=== PATIENT | female | born 1970 | race Caucasian/White ===

== ENCOUNTER 2020-02-21 00:29 | Inpatient (IN) | payer SELFPAY ==
[2020-02-21] MEDS ORDERED: Morphine 4 MG/ML VIAL ONE (00:58)
[2020-02-21 03:04] VITALS: BMI 44.4
[2020-02-21] MEDS ORDERED: Vancomycin HCl 1.5 GM in Sodium Chloride 0.9% 250 ML 300 ML IVPB SCH (04:00)
[2020-02-21] MEDS: Vancomycin 1.5 GRAM/300 ML BAG 1.5 GM in Premix Bag 1 BAG IVPB SCH ×2 (04:34→15:11)
[2020-02-21] MEDS: Morphine 4 MG/ML VIAL SLOW IVP PRN ×2 (04:34→09:08)
[2020-02-21 05:48] LABS: #Eosinphils 0.1 thou/uL (0.0-0.7); #Lymphocytes 1.5 thou/uL (1.20-3.40); #Monocytes 0.8 thou/uL (0.11-0.59); #Neutrophils 5.2 thou/uL (1.40-6.50); %Basophils 0.5 % (0.0-1.0); %Eosinophils 1.8 % (0.0-10.0); %Lymphocytes 19.3 % (21.0-51.0); %Monocytes 9.8 % (0.0-10.0); %Neutrophils 68.7 % (42.0-75.0); Hemoglobin 11.9 g/dL (12.0-16.0); Mean Corpuscular HGB CONC 32.5 g/dL (32.0-36.0); Mean Corpuscular Hemoglobin 30.9 pg (27.0-31.0); Mean Corpuscular Volume 95.1 fL (78.0-98.0); Mean Platelet Volume 8.2 fL (7.4-10.4); Platelet Count 226 thou/uL (130-400); RBC Distribution Width 11.9 % (11.5-14.5); Red Blood Cell (RBC) Count 3.86 mill/uL (4.20-5.40); White Blood Cell (WBC) Count 7.6 thou/uL (4.8-10.8)
[2020-02-21 06:00] LABS: Anion Gap 12 mmol/L (10-20); BUN (Urea Nitrogen) 8 mg/dL (9.8-20.1); Calc. Creatinine Clearance 188 mL/min (70-130); Calcium 8.3 mg/dL (7.8-10.44); Carbon Dioxide 25 mmol/L (22-29); Chloride 104 mmol/L (98-107); Estimated GFR-MDRD Greater than 90; Glucose 85 mg/dL (70-105); Potassium 3.5 mmol/L (3.5-5.1); Sodium 137 mmol/L (136-145)
--- NOTE | 2020-02-21 06:19 | HP ---
REASON FOR ADMISSION: Abdominal wall cellulitis. HISTORY OF PRESENT ILLNESS: This is a 50-year-old female patient who has history of ventral hernia post repair, presenting to the ER for swelling that started approximately 5 days ago around her incisional site that progressed to redness and firmness, also pain associated with initially low-grade fever, then increase in her temperature to approximately 102 degrees with chills and diaphoresis, decreased appetite. The patient used to live in [place] and moved here since then. 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 She is known to have rheumatoid arthritis, was on Humira, last dose was a month ago, and she ran out, supposed to be on methotrexate. Her last dose was a year ago. She saw a physician here who started her on prednisone to control her rheumatoid arthritis pain. She has been on 5 or 10 mg, she is not sure about the dose, was supposed to stop it in couple of days, has been taking it for 2 months. PAST MEDICAL HISTORY: 1. Cellulitis secondary to MRSA. 2. Rheumatoid arthritis. PAST SURGICAL HISTORY: 1. Ventral hernia, diagnosed in 2013. At that time, she underwent surgery and had a mesh placed, and then after complications in 2015, her mesh was removed, and a biological mesh was placed instead. Her cultures were positive for MRSA. Then she had more complications in 2018, during which she had three episodes of cellulitis involving the incision and had to have multiple I's and D's; at that time, she was living in [place], but for the past 2 years, she has not had any cellulitis until recently. 2. Hysterectomy. 3. Colon resection for perforated diverticulitis. 4. Gastric sleeve. 5. Right knee replacement. 6. Carpal tunnel, both hands. 7. Anemia. FAMILY HISTORY: Mother had heart disease. ALLERGIES: NO NOTE OF ANY DRUG ALLERGIES. SOCIAL HISTORY: She does not smoke. Does not drink alcohol. REVIEW OF SYSTEMS: All systems reviewed except the above-mentioned, found to be negative. PHYSICAL EXAMINATION: GENERAL: She is awake, alert, oriented, does not appear in distress. VITAL SIGNS: Her blood pressure is 131/77, pulse 69, temperature is 98.9, saturating 98% on room air. HEENT: Head is nontraumatic and normocephalic. Pupils are equally reactive. Extraocular motors are intact. Nonicteric sclerae. Well injected conjunctivae. Oral mucosa normal. Nasal mucosa normal. NECK: Supple. No adenopathy. No murmur. Thyroid is not palpable. Trachea is midline. No supraclavicular adenopathy. HEART: S1 and S2 regular. Faint systolic murmur heard. No displacement of PMI. LUNGS: Clear to auscultation bilaterally. No wheezes, no rhonchi, no crackles. ABDOMEN: Bowel sounds are positive. Abdomen is tender around the incisional sites with redness and firmness and is warm to touch. It is somewhat circular and the diameter is approximately 10 cm. Other part of her abdomen are soft. EXTREMITIES: She does have 2+ pitting edema in bilateral lower extremities with evidence of chronic venous insufficiency. NEUROLOGIC: Cranial nerves 2 through 12 within normal limits. Normal motor function. Normal sensory function. Normal reflexes. LABORATORY DATA: Blood work shows sodium 137, potassium 3.9, bicarb of 24, BUN of 9, creatinine of 0.82. WBC of 8.1, hemoglobin 13.2, platelets 271. A CT of the abdomen shows infected mesh ventral hernia repair and material with multiple peripherally enhancing collections as described, the largest peripherally enhancing collection having a sinus tract to the skin. Extensive inflammation of the anterior abdominal wall subcutaneous fat. ASSESSMENT AND PLAN: This is a 50-year-old female patient who is presenting with cellulitis of her abdominal wall. CT scan of the abdomen did show enhancing fluid collections, most likely will require surgical drainage. She does have history of abscesses. Cultures were positive for methicillin-resistant Staphylococcus aureus. She required to have multiple incisions and drainages in the past. Surgery was called by the ER physician. They deferred her admission to us. They will see her in consultation, Dr. Fraga, until then she will be on IV vancomycin. We will keep her n.p.o. in preparation for possible intervention, we will provide with IV morphine on as-needed basis for pain control. In regard of her rheumatoid arthritis, she has been on prednisone for 2 months in the setting of an infection. I would rather keep that prednisone because of risk of hypotension and suppression of her adrenal gland, so we will keep her on a low-dose prednisone for now. For deep venous thrombosis prophylaxis, she will be on Lovenox. I did discuss with her the plan of care. She is in agreement. Job ID: [id number]
[2020-02-21] MEDS: Pramipexole Di-HCl 1 MG TAB PO SCH (08:59)
[2020-02-21] MEDS: prednisoLONE 10 MG ODT TAB PO SCH (08:59)
[2020-02-21] MEDS: DULoxetine 60 MG CAP PO SCH (08:59)
[2020-02-21] MEDS: Enoxaparin Sodium 40 MG/0.4 ML SYRINGE SC SCH (10:30)
[2020-02-21 11:09] LABS: INR-International Normal Ratio 1.1; PTT 32.5 SEC (22.9-36.1); Prothrombin Time 14.4 sec (12.0-14.7)
[2020-02-21] MEDS ORDERED: Lidocaine 2% Jelly 5 ML TUBE ONE (11:59)
[2020-02-21] MEDS ORDERED: Fentanyl 100 MCG/2 ML VIAL ONE (11:59)
[2020-02-21] MEDS ORDERED: Midazolam HCl 2 mg/2 ml Vial ONE (11:59)
[2020-02-21] MEDS ORDERED: traMADol HCl 50 MG TAB PO PRN (13:19)
[2020-02-21] MEDS ORDERED: Ondansetron HCl/PF 4 MG/2 ML Vial IVP PRN (13:20)
[2020-02-21] MEDS ORDERED: Ketorolac Tromethamine 30 MG/ML VIAL IVP PRN (13:20)
[2020-02-21] MEDS ORDERED: Promethazine HCl 25 MG/ML VIAL SLOW IVP PRN (13:20)
[2020-02-21] MEDS ORDERED: Promethazine HCl 25 MG/ML VIAL IM PRN (13:20)
[2020-02-21] MEDS ORDERED: Acetaminophen 500 MG TAB PO SCH (13:30)
[2020-02-21] MEDS ORDERED: Ketorolac Tromethamine 30 MG/ML VIAL ONE (13:37)
--- NOTE | 2020-02-21 13:44 | OP ---
DATE OF PROCEDURE: 02/21/2020 PREOPERATIVE DIAGNOSIS: Abdominal wall abscess. POSTOPERATIVE DIAGNOSIS: Abdominal wall abscess. OPERATION PERFORMED: Incision and drainage of large abdominal wall abscess. ANESTHESIA: General endotracheal. ESTIMATED BLOOD LOSS: 20 mL. FLUIDS GIVEN: 1000 mL of crystalloids. COUNTS: Sponge and instrument counts were verified as correct x2. COMPLICATIONS: None apparent at the time of operation. INDICATIONS FOR OPERATION: A 50-year-old woman with previous multiple abdominal operations, presented with redness in the midabdomen, associated with bulging and painful mass. Clinical and radiographic examination were consistent with acute abdominal wall abscess, for which the patient was brought to the operating room for incision and drainage. Findings are consistent with large 8 x 10 x 5 cm abdominal wall abscess, which contained large amount of purulent pus. DESCRIPTION OF PROCEDURE: Informed consent was obtained from the patient, brought to the operating room and placed in supine position. Following general anesthesia, abdomen was sterilely prepped and draped in usual fashion. A vertical incision was made over the dome of the palpable flocculent mass. This was accomplished using 10 scalpel. Incision was carried through subcutaneous tissues and maintained hemostasis using cautery. The abscess cavity was entered using a hemostat. Large amount of purulent pus egressed. Cultures taken. I then used suction to evacuate over 500 mL of old pus from the abscess cavity. Necrotic tissues were bluntly debrided using sponge and Yankauer suction tip. The large abscess cavity was then copiously irrigated with saline and packed using sterile Kerlix gauze. Wound was covered with ABD pad and tape. The patient tolerated this operation without any apparent complication and was returned to recovery room in satisfactory condition. Job ID: [id number]
[2020-02-21] MEDS: traMADol HCl 50 MG TAB PO PRN ×2 (14:14→21:53)
--- NOTE | 2020-02-21 14:40 | CON ---
DATE OF CONSULTATION: 02/21/2020 REASON FOR CONSULTATION: Abdominal wall abscess. HISTORY OF PRESENT ILLNESS: This is a female with a past history of rheumatoid arthritis, on chronic prednisone, and history of MRSA cellulitis. The patient has had multiple abdominal surgeries. The patient had a biological mesh placed in 2018 and has not had any abdominal infections since placement. The patient complains of abdominal redness for 6 days, abdominal swelling, fever, and chills. The patient reports that the redness to her mid abdomen has increased in size. The patient denies any drainage from the area. The patient is having loose stools. The patient denies any nausea or vomiting. REVIEW OF SYSTEMS: A 10-point review of systems is negative unless otherwise indicated in the above HPI. PAST MEDICAL HISTORY: 1. Cellulitis secondary to MRSA. 2. Rheumatoid arthritis. 3. Fibromyalgia. 4. Osteoarthritis. 5. Anemia. PAST SURGICAL HISTORY: Ventral hernia in 2013. In 2018, mesh was removed and a biological mesh was placed. Three episodes of cellulitis involving the incision with multiple incisions and drainages at that time. x1. Laparoscopic gastric bypass, colon resection for perforated diverticulitis, right knee replacement, carpal tunnel surgery in both hands. SOCIAL HISTORY: Denies smoking. Occasional alcohol use. Denies any illicit drug use. ALLERGIES: NO KNOWN DRUG ALLERGIES. CURRENT MEDICATIONS: 1. Prednisone 5 mg 2 tablets p.o. daily. 2. Cymbalta 60 mg p.o. daily. 3. p.o. daily. PHYSICAL EXAMINATION: VITAL SIGNS: Temperature 98.5, pulse 72, respirations 18, SpO2 of 95% on room air, blood pressure 122/78. GENERAL: Middle-aged female, awake, alert, sitting up in bed, in no acute distress. HEENT: Head is atraumatic and normocephalic. Pupils are equal bilateral. Mucous membranes are moist. NECK: Trachea is midline. There is no JVD. RESPIRATORY: Bilateral breath sounds clear. No wheezing, rales, or rhonchi. CARDIAC: Regular rate, regular rhythm. No murmurs. ABDOMEN: Obese, overall nontender, redness, cellulitis to her mid abdomen measuring approximately 10 cm in a circular diameter. Mild blistering, no drainage, site is fluctuant, site is warm around the redness area. Redness marked. EXTREMITIES: Moves all extremities. No focal deficits. Mild edema to the lower extremities. NEUROLOGIC: No focal deficits. GCS 15. LABORATORY DATA: WBC 7.6, RBC 3.86, hemoglobin 11.9, hematocrit 36.7, platelets 226. PT 14.4, INR 1.1, aPTT 32.5. Sodium 135, potassium 3.5, chloride 104, BUN 8, creatinine 0.65, estimated GFR greater than 90, glucose 85, calcium 8.3. DIAGNOSTIC DATA: Abdominal CT, impression; infected mesh ventral hernia repair and material with multiple peripherally enhancing collections with largest peripherally enhancing collection having a sinus tract to the skin. Extensive inflammation of the anterior abdominal wall subcutaneous fat. IMPRESSION: 1. Abdominal wall abscess. 2. History of methicillin-resistant Staphylococcus aureus, gastric bypass surgery, multiple abdominal surgeries, fibromyalgia, rheumatoid arthritis. PLAN: We will keep the patient n.p.o. with maintenance fluids. We will take the patient to the OR for incision and drainage and washout of abdominal abscess wound. Continue antibiotics. We will do a nasal swab to test the patient for recurrent MRSA. The patient was examined by Dr. Fraga. The plan was discussed with the patient who agrees. Job ID: [id number]
[2020-02-21] MEDS ORDERED: Ondansetron PF 4 MG/2 ML Vial ONE (14:50)
[2020-02-21] MEDS ORDERED: Lidocaine 1% PF 5 ML VIAL ONE (14:50)
[2020-02-21] MEDS ORDERED: Dexamethasone 20 MG/5 ML VIAL ONE (14:50)
[2020-02-21] MEDS ORDERED: Succinylcholine Chloride 20 MG/ML 10 ml SYRINGE FS ONE (14:50)
[2020-02-21] MEDS ORDERED: Glycopyrrolate 0.2 MG/ML 5 ML SYRINGE ONE (14:50)
[2020-02-21] MEDS ORDERED: Rocuronium Bromide 10 MG/ML (10ML VIAL) ONE (14:50)
[2020-02-21] MEDS ORDERED: PROPOFOL 200 MG/20 ML VIAL ONE (14:50)
--- NOTE | 2020-02-21 16:17 | PDOC.HOSPP ---
- Subjective Encounter Date: 02/21/20 non-verbal Subjective: Still sedated from surgical procedure. - Objective Vital Signs & Weight: Vital Signs (12 hours) Temp Pulse Resp BP Pulse Ox 02/21/20 14:05 98.1 F 78 18 126/77 94 L 02/21/20 11:14 98.5 F 72 18 122/78 95 02/21/20 07:06 98.3 F 64 18 117/68 98 Weight Admit Weight 258 lb Weight 258 lb 14.4 oz Result Diagrams: 02/21/20 05:10 02/21/20 05:10 Hospitalist ROS - Medication Medications: Active Medications Generic Name Dose Route Start Last Admin Trade Name Freq PRN Reason Stop Dose Admin Duloxetine HCl 60 mg 02/21/20 09:00 02/21/20 08:59 Cymbalta PO 60 mg DAILY YUE Administration Enoxaparin Sodium 40 mg 02/21/20 09:00 02/21/20 10:30 Lovenox SC 40 mg 0900 YUE Administration Vancomycin HCl 1.5 gm/ Device 300 mls @ 200 mls/hr 02/21/20 04:00 02/21/20 15 :11 IVPB 300 mls 0400,1600 YUE Administration Pramipexole Dihydrochloride 0.5 mg 02/21/20 09:00 02/21/20 08:59 Mirapex PO 0.5 mg DAILY YUE Administration Prednisolone 10 mg 02/21/20 09:00 02/21/20 08:59 Orapred Odt PO 10 mg DAILY YUE Administration Tramadol HCl 100 mg 02/21/20 13:19 02/21/20 14:14 Ultram PO 100 mg Q6H PRN Administration Severe Pain (7-10) - Exam General Appearance: NAD General - other findings: Sedated, sleeping soundly. Heart: RRR, no murmur, no gallops, no rubs, normal peripheral pulses Respiratory: CTAB, no wheezes, no rales, no ronchi, normal chest expansion, no tachypnea, normal percussion Gastrointestinal: soft Gastrointestinal - other findings: Surgical dressing Hosp A/P (1) Abdominal wall abscess at site of surgical wound Code(s): T81.49XA - INFECTION FOLLOWING A PROCEDURE, OTHER SURGICAL SITE, INIT Status: Acute (2) Rheumatoid arthritis Code(s): M06.9 - RHEUMATOID ARTHRITIS, UNSPECIFIED Status: Acute - Plan S/P I and D of the abdominal wall abscess. Packed. Continue Vanc. Follow up on cultures.
--- NOTE | 2020-02-21 17:13 | CON ---
DATE OF CONSULTATION: 02/21/2020 REQUESTING PHYSICIAN: Kimberly Mensah MD. HISTORY OF PRESENT ILLNESS: This is a 50-year-old obese woman with a previous history of multiple abdominal operations. The patient was seen in the emergency department with complaint of worsening abdominal wall painful mass, associated with some redness and fever. Her symptoms started approximately 1 week ago, and over the last 48 hours, the bulge has become bigger and the patient is experiencing some chills with anorexia. As a result, she presented for evaluation in the emergency department. Workup included CT scan of the abdomen and pelvis, which revealed abdominal wall fluid collection, suspicious for abscess. The patient recalls having had similar episode in the past, which required incision and drainage for MRSA abscess. She has been on oral prednisone over the last 2 months for rheumatoid arthritis exacerbation. PAST MEDICAL HISTORY: Significant for: 1. Rheumatoid arthritis. 2. Osteoarthritis. 3. Fibromyalgia. 4. Previous MRSA abscess. SURGICAL HISTORY: Numerous, including , colon resection with primary anastomosis in 2011 for perforated diverticulitis. Additionally, she has had a gastric sleeve, a ventral incisional herniorrhaphy with mesh in 2013, laparotomy with excision of infected mesh in 2015, ventral incisional herniorrhaphy in 2018 with Biologic mesh. Additionally, the patient has had multiple incision and drainage of abdominal wall abscesses. Other pertinent surgical history includes hysterectomy, bilateral carpal tunnel release, right total knee arthroplasty. SOCIAL HISTORY: She is . Lives at home with her . She recently moved from [place]. She denies any cigarette smoking, ethanol, or illicit drug abuse. FAMILY HISTORY: Noncontributory for this patient's age. PREHOSPITALIZATION MEDICATIONS: Includes: 1. Cymbalta 60 mg p.o. daily. 2. Pramipexole 0.5 mg p.o. daily for restless legs syndrome. 3. Prednisone 10 mg p.o. daily. ALLERGIES: THE PATIENT DENIES ANY KNOWN DRUG ALLERGIES. REVIEW OF SYSTEMS: Ten-point review of systems essentially unremarkable except as stated in past medical history and chief complaint. PHYSICAL EXAMINATION: GENERAL: This reveals a 50-year-old obese woman who is otherwise coherent and interactive, appears stated age. The patient is alert and oriented x3, appears to be in no acute distress at the time of my evaluation. VITAL SIGNS: Today include blood pressure 122/78, pulse 72, respiratory rate is 18, temperature 98.5 degrees Fahrenheit, and oxygen saturation 95% on room air. HEENT: Reveals normocephalic and atraumatic. HEART: Reveals regular rate and rhythm. No murmurs or gallops auscultated. LUNGS: Clear to auscultation bilaterally. Breathing, regular and nonlabored. ABDOMEN: Soft and obese. She has a 5 x 7 cm flocculent mass in the midabdomen with induration and significant tenderness to touch. She clearly has no peritoneal signs on examination. NEUROLOGIC: Reveals no focal deficits present. LABORATORY FINDINGS: Today include a CBC with 7600 white blood cells, hemoglobin and hematocrit 11.9 and 36.7 respectively, and platelet count is 226,000. Metabolic profile: Sodium 137, potassium 3.5, chloride is 104, bicarb is 25, BUN is 8, creatinine 0.65, and glucose 85. PTT and INR normal at 32.5 seconds and 1.1 respectively. IMPRESSIONS: 1. A 5 x 7 cm abdominal wall abscess. 2. History of steroid-dependent rheumatoid arthritis. PLAN: 1. Incision and drainage of the abscess, which is likely to be secondary to methicillin-resistant Staphylococcus aureus. 2. Agree with current antibiotic regimen. Above findings and plan has been discussed with the patient who indicates understanding information given. I have advised the patient of the risks and benefits of the proposed surgery to include, but not limited to bleeding, infection, injury to bowel or surrounding structures. She is probably at increased risk for enterocutaneous fistula given her multiple previous abdominal operations. The patient indicates understanding the information given. I have answered all her questions. Thank you again, Dr. Mensah, for allowing me the opportunity to participate in the care of this patient. Job ID: [id number]
[2020-02-21] MEDS: Pantoprazole 40 MG VIAL IVP SCH (20:09)
[2020-02-22] MEDS: Vancomycin 1.5 GRAM/300 ML BAG 1.5 GM in Premix Bag 1 BAG IVPB SCH ×2 (04:08→15:41)
[2020-02-22] MEDS: traMADol HCl 50 MG TAB PO PRN ×3 (04:11→15:42)
[2020-02-22] MEDS: Acetaminophen 500 MG TAB PO SCH ×4 (04:12→23:33)
[2020-02-22 05:36] LABS: Hemoglobin 11.9 g/dL (12.0-16.0); Mean Corpuscular Hemoglobin 31.1 pg (27.0-31.0); Mean Corpuscular Volume 94.2 fL (78.0-98.0); Platelet Count 267 thou/uL (130-400); RBC Distribution Width 11.5 % (11.5-14.5); Red Blood Cell (RBC) Count 3.82 mill/uL (4.20-5.40); White Blood Cell (WBC) Count 7.8 thou/uL (4.8-10.8)
[2020-02-22 05:45] LABS: Anion Gap 10 mmol/L (10-20); BUN (Urea Nitrogen) 12 mg/dL (9.8-20.1); Calc. Creatinine Clearance 174 mL/min (70-130); Calcium 8.5 mg/dL (7.8-10.44); Carbon Dioxide 25 mmol/L (22-29); Chloride 104 mmol/L (98-107); Estimated GFR-MDRD 88; Glucose 189 mg/dL (70-105); Magnesium 2.2 mg/dL (1.6-2.6); Phosphorus 2.8 mg/dL (2.3-4.7); Potassium 4.2 mmol/L (3.5-5.1); Sodium 135 mmol/L (136-145)
--- NOTE | 2020-02-22 06:08 | PRG ---
DATE OF SERVICE: 02/21/2020 SUBJECTIVE: The patient was seen this evening during rounds. She was sitting up in bed and awake with no signs of acute distress. She reported she had just gone to the bathroom and has voided twice since she came back from the OR. She is tolerating a diet, and she reports that she is feeling much better. OBJECTIVE: VITAL SIGNS: Temperature 97.4, pulse 60, respirations 16, oxygen saturation 93% on room air, blood pressure 122/73. ASSESSMENT: 1. Postop day 0, status post I and D of abdominal wall abscess. 2. History of methicillin-resistant Staphylococcus aureus cellulitis and rheumatoid arthritis. PLAN: Continue current diet and pain regimen. Continue IV antibiotics. Wound Care to see the patient. Follow up cultures. Job ID: [id number]
[2020-02-22 06:37] LABS: Band 4 % (5-11); Lymphocytes 13 % (21-51); MDiff Complete? YES; Monocytes 6 % (0-10); Neutrophil 77 % (42-75)
[2020-02-22] MEDS: Pramipexole Di-HCl 1 MG TAB PO SCH (08:31)
[2020-02-22] MEDS: prednisoLONE 10 MG ODT TAB PO SCH (08:32)
[2020-02-22] MEDS: Pantoprazole 40 MG VIAL IVP SCH ×2 (08:32→20:32)
[2020-02-22] MEDS: DULoxetine 60 MG CAP PO SCH (08:32)
[2020-02-22] MEDS: Enoxaparin Sodium 40 MG/0.4 ML SYRINGE SC SCH (08:32)
--- NOTE | 2020-02-22 10:38 | PDOC.HOSPP ---
- Subjective Encounter Date: 02/22/20 Subjective: Says she is feeling much better. Her abdominal pain is much improved. Her primary concern now is that she is still without her rheumatoid medications. She believes that she can get her Humira through the company. She believes she can obtain the other medications if she has a prescription. She has been unable to get a prescription from [email or web address]. She has not been referred to rheumatology locally. She lives in [facility]. - Objective Vital Signs & Weight: Vital Signs (12 hours) Temp Pulse Resp BP Pulse Ox 02/22/20 07:50 98.1 F 60 18 135/82 97 02/22/20 00:00 97.4 F L 60 16 122/73 93 L Weight Admit Weight 258 lb Weight 258 lb 14.4 oz I&O: 02/21/20 02/22/20 02/23/20 06:59 06:59 06:59 Intake Total 2255 Output Total 600 Balance 1655 Result Diagrams: 02/22/20 05:19 02/22/20 05:19 Hospitalist ROS - Medication Medications: Active Medications Generic Name Dose Route Start Last Admin Trade Name Freq PRN Reason Stop Dose Admin Acetaminophen 1,000 mg 02/22/20 06:00 02/22/20 04:12 Tylenol PO 1,000 mg Q6HR YUE Administration Duloxetine HCl 60 mg 02/21/20 09:00 02/22/20 08:32 Cymbalta PO 60 mg DAILY YUE Administration Enoxaparin Sodium 40 mg 02/21/20 09:00 02/22/20 08:32 Lovenox SC 40 mg 0900 YUE Administration Vancomycin HCl 1.5 gm/ Device 300 mls @ 200 mls/hr 02/21/20 04:00 02/22/20 04 :08 IVPB 300 mls 0400,1600 YUE Administration Pantoprazole Sodium 40 mg 02/21/20 21:00 02/22/20 08:32 Protonix IVP 40 mg Q12HR YUE Administration Pramipexole Dihydrochloride 0.5 mg 02/21/20 09:00 02/22/20 08:31 Mirapex PO 0.5 mg DAILY YUE Administration Prednisolone 10 mg 02/21/20 09:00 02/22/20 08:32 Orapred Odt PO 10 mg DAILY YUE Administration Tramadol HCl 100 mg 02/21/20 13:19 02/22/20 09:17 Ultram PO 100 mg Q6H PRN Administration Severe Pain (7-10) - Exam General Appearance: NAD, awake alert Heart: RRR, no murmur, no gallops, no rubs, normal peripheral pulses Respiratory: CTAB, no wheezes, no rales, no ronchi, normal chest expansion, no tachypnea, normal percussion Gastrointestinal: soft, non-tender, non-distended, normal bowel sounds, no palpable masses, no hepatomegaly, no splenomegaly, no bruit Gastrointestinal - other findings: Surgical dressing at the mid abdomen. Extremities: no cyanosis, no clubbing, no edema Skin: normal turgor Musculoskeletal: normal tone Psychiatric: normal affect, normal behavior, A&O x 3 Hosp A/P (1) Abdominal wall abscess at site of surgical wound Code(s): T81.49XA - INFECTION FOLLOWING A PROCEDURE, OTHER SURGICAL SITE, INIT Status: Acute (2) Rheumatoid arthritis Code(s): M06.9 - RHEUMATOID ARTHRITIS, UNSPECIFIED Status: Acute - Plan S/P I and D of the abdominal wall abscess. Packed. Continue Vanc. Follow up on cultures. She has a history of MRSA infection. Preliminary results on the culture shows gram-positive cocci in pairs and chains. This is concerning for recurrent MRSA. She is therefore on isolation. We will continue with p.o. prednisone for now. Not sure we will be able to do much over the holiday weekend as far as helping her obtain any medications. May need to work through her county to get some help with that.
[2020-02-22 15:32] LABS: Vancomycin, Trough 11.6 ug/mL
[2020-02-23] MEDS: Vancomycin 1.5 GRAM/300 ML BAG 1.5 GM in Premix Bag 1 BAG IVPB SCH (03:34)
--- NOTE | 2020-02-23 04:06 | PRG ---
DATE OF SERVICE: 02/22/2020 SUBJECTIVE: The patient was seen this evening during rounds. She was sitting up in bed, awake and alert with no signs of acute distress. She reported her pain is well controlled. Her abdominal dressing had just been changed by nursing. She reported that the oozing had decreased significantly. She denies any fevers or chills. OBJECTIVE: VITAL SIGNS: Temperature 97.8, pulse 60, respirations 18, oxygen saturation 96% on room air, and blood pressure 124/80. GENERAL: Well-appearing middle-aged female, sitting up in bed with no signs of acute distress. PULMONARY: Equal chest rise and fall. No signs of acute respiratory distress. ABDOMEN: Soft, nontender, nondistended. Midline abdominal dressing is clean, dry, and intact with no signs of oozing or infection. EXTREMITIES: 2+ pulses in all extremities. Gross motor and sensation intact. No significant swelling noted. NEUROLOGIC: GCS 15. ASSESSMENT: Postoperative day 1, status post I and D of abdominal wall abscess. PLAN: Continue current diet and pain regimen. Follow up wound cultures. Continue current antibiotics in the meantime. Continue ambulating as much as possible. Job ID: [id number]
[2020-02-23] MEDS: Acetaminophen 500 MG TAB PO SCH ×2 (05:39→13:18)
[2020-02-23 06:10] LABS: Mean Corpuscular HGB CONC 32.9 g/dL (32.0-36.0); Mean Corpuscular Volume 94.3 fL (78.0-98.0); Mean Platelet Volume 8.3 fL (7.4-10.4); Platelet Count 272 thou/uL (130-400); RBC Distribution Width 11.6 % (11.5-14.5); Red Blood Cell (RBC) Count 3.56 mill/uL (4.20-5.40); White Blood Cell (WBC) Count 6.3 thou/uL (4.8-10.8)
[2020-02-23 07:22] LABS: Band 1 % (5-11); Lymphocytes 43 % (21-51); MDiff Complete? YES; Monocytes 8 % (0-10); Neutrophil 48 % (42-75)
[2020-02-23 08:16] VITALS: BP 117/75
[2020-02-23] MEDS: DULoxetine 60 MG CAP PO SCH (09:57)
[2020-02-23] MEDS: prednisoLONE 10 MG ODT TAB PO SCH (09:57)
[2020-02-23] MEDS: Pramipexole Di-HCl 1 MG TAB PO SCH (09:57)
[2020-02-23] MEDS: Enoxaparin Sodium 40 MG/0.4 ML SYRINGE SC SCH (09:57)
[2020-02-23] MEDS: Pantoprazole 40 MG VIAL IVP SCH (09:58)
[2020-02-23] MEDS: traMADol HCl 50 MG TAB PO PRN (10:15)
[2020-02-23 11:56] VITALS: TEMP 98.2
== END 2020-02-23 15:30 | disposition home or self-care (01) | DRG 857 ==
LOC: ERS 00:29 → SURG A 01:45
PROVIDERS: ADMIT Internal Medicine; ATTEND Internal Medicine
PROC: 0J980ZZ Drainage of Abdomen Subcutaneous Tissue and Fascia, Open Approach (ICD-10-PCS; principal; 2020-02-21)
DX: T81.41XA Infection following a procedure, superficial incisional surgical site, initial encounter (principal); L02.211 Cutaneous abscess of abdominal wall; M06.9 Rheumatoid arthritis, unspecified; M79.7 Fibromyalgia; M19.90 Unspecified osteoarthritis, unspecified site; D64.9 Anemia, unspecified; B95.62 Methicillin resistant Staphylococcus aureus infection as the cause of diseases classified elsewhere; Z96.651 Presence of right artificial knee joint; Y83.8 Other surgical procedures as the cause of abnormal reaction of the patient, or of later complication, without mention of misadventure at the time of the procedure; Z90.49 Acquired absence of other specified parts of digestive tract; Z98.51 Tubal ligation status; Z98.84 Bariatric surgery status; Z90.710 Acquired absence of both cervix and uterus
CPT/HCPCS: 36415; 80048; 80202; 83735; 84100; 85007; 85025; 85027; 85610; 85730; 86850; 86900; 86901; 87070; 87077; 87081; 87186; 87205; 96374; C9113; J1100; J1650; J1885; J2001; J2250; J2270; J2405; J2704; J3010; J3370; J7510

== ENCOUNTER 2020-07-23 15:13 | Inpatient (IN) | payer OTHER, SELFPAY ==
[2020-07-23] MEDS ORDERED: Iopamidol-370 76% 500 ML 1 ML ONE (15:30)
[2020-07-23 16:00] LABS: Bilirubin Negative (Negative); Blood, Urine 1+ (Negative); Clarity Turbid (Clear); Glucose, Urine (Dipstick) Normal (Negative); Ketone, Urine 10 mg/dL (Negative); Leukocyte 500 Leu/uL (Negative); Nitrite Negative (Negative); Protein, Urine (Dipstick) 20 mg/dL (Neg-Trace); RBC/HPF 0-3 HPF (0-3); Specific Gravity, Urine 1.024 (1.002-1.036); Urobilinogen 6 mg/dL (Less than 2); pH, Urine 5.5 (5.0-9.0)
[2020-07-23 16:01] LABS: Bacteria/HPF 1+ HPF (None Seen)
[2020-07-23 16:10] LABS: #Eosinphils 0.1 thou/uL (0.0-0.7); #Monocytes 0.7 thou/uL (0.11-0.59); #Neutrophils 5.3 thou/uL (1.40-6.50); %Basophils 0.4 % (0.0-1.0); %Eosinophils 0.8 % (0.0-10.0); %Lymphocytes 13.8 % (21.0-51.0); %Monocytes 9.4 % (0.0-10.0); %Neutrophils 75.6 % (42.0-75.0); Hemoglobin 13.6 g/dL (12.0-16.0); Mean Corpuscular HGB CONC 35.4 g/dL (32.0-36.0); Mean Corpuscular Hemoglobin 32.4 pg (27.0-31.0); Mean Corpuscular Volume 91.3 fL (78.0-98.0); Mean Platelet Volume 8.2 fL (7.4-10.4); Platelet Count 261 thou/uL (130-400); RBC Distribution Width 11.3 % (11.5-14.5); Red Blood Cell (RBC) Count 4.21 mill/uL (4.20-5.40)
[2020-07-23 16:39] LABS: ALT (SGPT) 19 U/L (8-55); AST (SGOT) 15 U/L (5-34); Albumin 3.7 g/dL (3.5-5.0); Alkaline Phosphatase 94 U/L (40-110); Anion Gap 16 mmol/L (10-20); BUN (Urea Nitrogen) 13 mg/dL (9.8-20.1); Bilirubin, Total 0.6 mg/dL (0.2-1.2); Calc. Creatinine Clearance 0 mL/min (70-130); Calcium 9.4 mg/dL (7.8-10.44); Carbon Dioxide 25 mmol/L (22-29); Chloride 99 mmol/L (98-107); Estimated GFR-MDRD 72; Globulin 3.9 g/dL (2.4-3.5); Glucose 101 mg/dL (70-105); Lipase 28 U/L (8-78); Potassium 3.8 mmol/L (3.5-5.1); Protein, Total 7.6 g/dL (6.0-8.3); Sodium 136 mmol/L (136-145)
[2020-07-23] MEDS ORDERED: Piperacillin/Tazobactam 4.5 GM VIAL ONE (17:08)
--- NOTE | 2020-07-23 17:44 | CT ---
CT ABDOMEN AND PELVIS WITH IV CONTRAST: 07/23/20 HISTORY: Fever. Cellulitis of abdominal wall. COMPARISON: 02/20/20 FINDINGS: Lung bases remain clear. The previously seen fluid collection in the anterior abdominal wall along the linea alba is no longer visualized and may be related to interval treatment. The subcutaneous edema and stranding in the arnulfo pose layer of the anterior abdominal wall has improved but does persists. There is now a fluid collec tion with thickened enhancing wall present within the anterior aspect of the pelvis below the abdomin al wall and beneath what is thought to be mesh material. The collection in this region measures 5.8 c m craniocaudal x 4.8 cm AP x 3.8 cm in transverse dimensions. There is also prominent adjacent inflam matory stranding. The collection within the anterior aspect of the abdomen also extends superiorly al emmanuel the mesh material. There is mild enhancement of tissue extending inferior to the collection as we ll along the anterior abdominal wall and in the region of the mesh likely related to phlegmon and inf lammatory change. Postoperative changes related to bariatric surgery with small hiatal hernia. Surgical clips are seen in the anterior epigastric region. The liver, spleen, pancreas, bilateral adrenal glands, kidneys, abdominal aorta, and urinary bladder demonstrate a normal CT appearance. There is evidence of hysterectomy. Postoperative changes in the region of the sigmoid colon are noted. There is colonic diverticulosis p resent. Loops of small bowel are normal in caliber. No other interval change. IMPRESSION: 1. Findings likely related to infection of mesh material along the anterior abdominal wall. Prev iously seen collection predominantly within the anterior abdominal wall above the level of the mesh m aterial is no longer seen which may be related to interval treatment. However, there is now a new col lection seen posterior to the region of the mesh material worrisome for new abscess collection. There are inflammatory changes and phlegmon seen adjacent to the mesh material. 2. Subcutaneous edema and stranding in the infraumbilical adipose layer which could be related t o cellulitis. This has improved from prior exam but does persist. 3. Evidence of prior gastric surgery with persistent small hiatal hernia. 4. Colonic diverticulosis with evidence of postoperative changes of the sigmoid colon. POS: [facility]
[2020-07-23] MEDS ORDERED: Acetaminophen 325 MG TAB PO PRN (19:56)
[2020-07-23] MEDS ORDERED: Ondansetron PF 4 MG/2 ML Vial IVP PRN (19:56)
[2020-07-23] MEDS ORDERED: Vancomycin HCl 1 GM in Sodium Chloride 0.9% 250 ML 300 ML IVPB SCH (20:00)
--- NOTE | 2020-07-23 20:18 | PDOC.CONS ---
- Consultation Encounter Date: 07/23/20 Encounter Time: 20:11 Reason for consultation-abdominal wall abscess Chief complaint-I have another abscess History of present illness-the patient is a 50-year-old female who presents to the emergency room with a 1 week history of increasing swelling and pain within the lower central abdomen. 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 Most recently, she was here in January for a similar episode, yet in a different location. She underwent incision and drainage at that time. Over the years, she states that she has had abscesses in other locations to include prior drain sites and other nonoperative areas on her abdomen. Several days ago, she had a T-max of 102. She has been avoiding coming to seek medical attention secondary to a lack of insurance. Her pain is well localized. It is in the lower abdomen. Can get up to 8 out of 10. Worse with movement. Better when she remains still. Constant and sharp. Patient has a history of prior prednisone use. She has not had any steroids or immune modulating medicine since before January. Past medical history-rheumatoid arthritis, fibromyalgia, history of MRSA Past surgical history-gastric sleeve, ventral hernia repair, removal of infected mesh, hernia repair with biologic mesh, sigmoidectomy for prior history of diverticular abscess, hysterectomy, right knee replacement, carpal tunnel, panniculectomy Family history-mother had a myocardial infarction, father recently passed of colon cancer Medication-Cymbalta Allergies-none Social history-denies smoking, occasional alcohol use Review of systems-positive for joint pain, back pain, otherwise, 10 system, two- point per system negative other than HPI 145/72, 76, 98.8 General-[no acute distress, well-nourished, overweight] Head-[normocephalic, atraumatic] HEENT- [EOMI], [PERRLA] Neck-[trachea midline, supple] Lungs-[grossly clear to auscultation], [normal air movement] Heart-[regular regular], [no murmurs] Abdomen-[soft], [nondistended], in the lower abdomen, within the midline-there is an area of erythema that is warm and protuberant. This is tender to palpation, [normal active bowel sounds] Musculosketal-[full range of motion], [no gross deformity] Psychiatric-[good insight, good judgment] Skin-[good turgor, no jaundice] Neuro- [GCS 15], [CN II-XII intact] Lab-White blood cell count-7.6 CT scan abdomen and pelvis-independently viewed the images-I read the radiologist interpretation-the patient has, what appears to be a multi loculated abscess within the lower abdomen. It is difficult to ascertain whether this is above or below the fascia. On some images, it appears to be either within the midline or above it. Regardless, the original abscess from last January has resolved. Assessment- #1-abdominal wall abscess-the patient has a very good memory for her hernia repair in 2018. She was told that she had biologic mesh placed. It sounds like she had an onlay and an underlay. On the CT scan, you can clearly identify what appears to be mesh under the rectus. The question is going to be whether this is synthetic or biologic. We discussed that it is possible this could just be a straightforward I&D, but there is always the potential that she has synthetic mesh that has an abscess communicating with it. In that circumstance, we would have to explant the mesh, and given her past surgical history, this could be cumbersome. We discussed the possibility of enterotomy, colotomy or damage to the bladder. If it is a biologic, it seems to be fairly substantial given that it was placed almost 2 years ago. Fortunately, if it is a biologic, we can treat through it with wound care after the abscess has been drained. #2-rheumatoid arthritis-patient has been off of steroids for quite some time. I do not think she needs stress dose steroids. Plan-n.p.o. after midnight, OR has been contacted and the patient will be brought to the operating room tomorrow morning for incision and drainage with other procedures (explant of mesh) as indicated. Given her history of MRSA, she should be on a broad-spectrum antibiotic as well as vancomycin. Hopefully this is just a matter of an incision and drainage, but given her history and its appearance on the CT scan, this would be very optimistic. Anticipate her to be here for more than 2 midnights.
[2020-07-23 21:00] VITALS: BMI 44.6
[2020-07-23] MEDS: Cefepime 2 GM in Sodium Chloride 0.9% 100 ML IVPB SCH (21:48)
[2020-07-23] MEDS: Sodium Chloride 0.9% 1,000 ML IV SCH (21:48)
--- NOTE | 2020-07-23 21:50 | PDOC.EVN ---
Event Note - Event Note Event Note: [id number] HP
[2020-07-23] MEDS: metroNIDAZOLE 500 MG in Premix Bag 1 BAG IVPB SCH (22:31)
--- NOTE | 2020-07-24 01:07 | HP ---
CHIEF COMPLAINT: Cellulitis/skin infection. HISTORY OF PRESENT ILLNESS: Ms. Hamilton is a 50-year-old female with past medical history of rheumatoid arthritis, fibromyalgia, MRSA infection, among others, presents to the emergency room for evaluation of a skin infection/cellulitis of her abdominal wall that has been developing over the last several days. The patient also has fever. She had a similar episode in the past spring, for which she was admitted and needed drainage. 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 She is not on any current immunosuppressive for her rheumatoid arthritis. Workup in the emergency room, the patient was found to have cellulitis of abdominal wall. Lab work including imaging studies showed abscess. Surgeon is being consulted by ED. The patient is on IV antibiotics. The patient is being admitted to the hospital for further management. PAST MEDICAL HISTORY: As mentioned above in the history of present illness. PAST SURGICAL HISTORY: 1. Gastric sleeve. 2. Colon resection. 3. Hernia repair. 4. Right knee surgery. 5. section. 6. Tubal ligation. PAST PSYCHIATRIC HISTORY: Anxiety, depression. SOCIAL HISTORY: The patient drinks socially. Denies drug use. No smoking history. FAMILY HISTORY: Reviewed, noncontributory. ALLERGIES: NO KNOWN ALLERGIES. HOME MEDICATIONS: Please see home medication reconciliation form for updated medications. REVIEW OF SYSTEMS: Review of 14 systems negative except what is mentioned in history of present illness. PHYSICAL EXAMINATION: GENERAL: The patient is awake, alert, in moderate distress. VITAL SIGNS: Blood pressure , pulse is 89, respiratory rate is 16, temperature is 98.2, oxygen saturation 100% on room air. HEAD AND NECK: Normocephalic, atraumatic. NECK: Supple. No JVD. CHEST: Fair bilateral air entry. HEART: S1, S2. Regular. ABDOMEN: Mild tenderness, left lower quadrant. SKIN: There is redness/cellulitis of the anterior abdominal wall. NEUROLOGIC: Awake, alert, and oriented. No focal findings. PSYCH: Unable to assess. EXTREMITIES: No clubbing or cyanosis. LABORATORY DATA: CT showed abscess on the anterior side of the mesh. WBC 7.0, hemoglobin 13.6, platelets 8.2. Sodium 136, potassium 3.8, BUN is 30, creatinine 0.8. ASSESSMENT: 1. Cellulitis of abdominal fold. 2. Abdominal wall abscess. 3. Rheumatoid arthritis. 4. History of MRSA infection. PLAN: 1. Admit. 2. Septic workup done in the ED. 3. IV antibiotics. 4. Surgeon was consulted by ED for evaluation and further management. The patient will require drainage. 5. Reconcile home medications. 6. DVT prophylaxis as appropriate. 7. Expected length of stay, 2 midnights or more. Job ID: [id number]
[2020-07-24] MEDS: metroNIDAZOLE 500 MG in Premix Bag 1 BAG IVPB SCH ×2 (05:06→18:26)
[2020-07-24] MEDS: Vancomycin HCl 1.75 GM in Sodium Chloride 0.9% 500 ML IVPB SCH ×2 (06:13→18:36)
[2020-07-24 06:17] LABS: #Eosinphils 0.1 thou/uL (0.0-0.7); #Lymphocytes 1.2 thou/uL (1.20-3.40); #Monocytes 0.6 thou/uL (0.11-0.59); #Neutrophils 4.3 thou/uL (1.40-6.50); %Basophils 0.4 % (0.0-1.0); %Eosinophils 1.4 % (0.0-10.0); %Lymphocytes 19.5 % (21.0-51.0); %Monocytes 9.9 % (0.0-10.0); %Neutrophils 68.8 % (42.0-75.0); Hemoglobin 12.4 g/dL (12.0-16.0); Mean Corpuscular HGB CONC 32.5 g/dL (32.0-36.0); Mean Corpuscular Hemoglobin 30.6 pg (27.0-31.0); Mean Platelet Volume 8.4 fL (7.4-10.4); Platelet Count 254 thou/uL (130-400); RBC Distribution Width 11.6 % (11.5-14.5); Red Blood Cell (RBC) Count 4.05 mill/uL (4.20-5.40); White Blood Cell (WBC) Count 6.3 thou/uL (4.8-10.8)
[2020-07-24 06:38] LABS: Anion Gap 14 mmol/L (10-20); BUN (Urea Nitrogen) 8 mg/dL (9.8-20.1); Calc. Creatinine Clearance 183 mL/min (70-130); Calcium 8.7 mg/dL (7.8-10.44); Carbon Dioxide 20 mmol/L (22-29); Chloride 108 mmol/L (98-107); Estimated GFR-MDRD Greater than 90; Glucose 99 mg/dL (70-105); Potassium 3.7 mmol/L (3.5-5.1); Sodium 138 mmol/L (136-145)
[2020-07-24] MEDS ORDERED: FLU VACC QS2020-21(6MOS UP)/PF 60 MCG/0.5 ML SYRINGE IM ONE (09:00)
[2020-07-24] MEDS ORDERED: PROPOFOL 200 MG/20 ML VIAL ONE (09:22)
[2020-07-24] MEDS ORDERED: Rocuronium Bromide 10 MG/ML (10ML VIAL) ONE (09:22)
[2020-07-24] MEDS ORDERED: PHENYLEPHRINE-NS 100 MCG/ML 10 ML SYRINGE ONE (09:22)
[2020-07-24] MEDS ORDERED: Glycopyrrolate 0.2 MG/ML 5 ML SYRINGE ONE (09:22)
[2020-07-24] MEDS ORDERED: Ondansetron PF 4 MG/2 ML Vial ONE (09:22)
[2020-07-24] MEDS ORDERED: Lidocaine 1% PF 5 ML VIAL ONE (09:22)
[2020-07-24] MEDS ORDERED: Dexamethasone 20 MG/5 ML VIAL ONE (09:22)
[2020-07-24] MEDS: Cefepime 2 GM in Sodium Chloride 0.9% 100 ML IVPB SCH (10:05)
[2020-07-24] MEDS: Sodium Chloride 0.9% 1,000 ML IV SCH (10:27)
--- NOTE | 2020-07-24 11:18 | PDOC.BPN ---
- Brief Progress Note Encounter Date: 07/24/20 Encounter Time: 11:17 Patient states that her pain is somewhat improved this morning. Still located in her lower abdomen. Otherwise, no new changes. No fevers or chills overnight Patient had a low-grade temperature Abdomen-soft with the exception of the lower midline area. Erythema has somewhat improved, but the area is rubber heel and sole press tender. White blood cell count normal. We went over the operation again this morning. We will start with an incision and drainage in hopes that this is all suprafascial. Otherwise, she may need mesh explantation. Patient voices understanding
[2020-07-24 12:03] LABS: SARS-CoV-2 MS2 Positive; SARS-CoV-2 N Gene Negative; SARS-CoV-2 S Gene Negative; SARS-CoV-2 by NAA Not Detected (NotDetected); SARS-CoV-2 orf1ab Negative
[2020-07-24] MEDS ORDERED: metroNIDAZOLE 500 MG/100 ML BAG ONE (14:20)
[2020-07-24] MEDS ORDERED: Fentanyl 100 MCG/2 ML VIAL ONE (15:38)
[2020-07-24] MEDS ORDERED: Midazolam HCl 2 mg/2 ml Vial ONE (15:38)
[2020-07-24] MEDS ORDERED: Lidocaine 2% Jelly 5 ML TUBE ONE (15:38)
[2020-07-24] MEDS ORDERED: Neomycin-Polymyxin 1 ML AMP ONE (16:54)
[2020-07-24] MEDS ORDERED: Ondansetron HCl/PF 4 MG/2 ML Vial IVP PRN (17:47)
[2020-07-24] MEDS ORDERED: Promethazine HCl 25 MG/ML VIAL SLOW IVP PRN (17:47)
[2020-07-24] MEDS ORDERED: Promethazine HCl 25 MG/ML VIAL IM PRN (17:47)
--- NOTE | 2020-07-24 18:45 | PDOC.OP ---
Operative Note - Operative Note Operative Note: Date of surgery-24 July 2020 Preop rirfuwyqa-ezqli-mrptepgon abscess Postop ntevyabxu-bwrxs-upaveuehh abscess Procedure performed-drainage of intra-abdominal abscess with excision of mesh Anesthesia- [General] EBL- [minimal] Specimen-for culture Complications- [none] Sponge and needle count were correct x2 Indication for procedure-The patient is a 50-year-old female who has had a history of multiple MRSA infections on her abdominal wall. Most recently, she had an abscess drained in January. She presented this weekend with pain erythema and swelling of the lower abdomen. CT scan demonstrated a abscess about or under the abdominal wall. She was taken to the operating room for drainage and potential mesh excision Conduct of the operation-After written preoperative informed consent, the patient was brought to the operating room, placed in the supine position and underwent general anesthesia. The abdomen was prepared draped in sterile fashion. A timeout was performed. An incision was made over the area of fullness in the lower abdomen. Dissection was carried down to the fascia and this was carefully divided. Once through, the abscess cavity was entered which consisted of purulent material that had no odor. Cultures were obtained. There was evidence of synthetic mesh. This was excised through the accessible portion of the incision. A drain was left. The fascia was closed with 2-0 PDS suture. The incision was loosely stapled with sheila in between. Patient was extubated and taken the postanesthesia care area in good condition having tolerated the procedure well.
--- NOTE | 2020-07-24 18:51 | PDOC.HOSPP ---
- Subjective Encounter Date: 07/24/20 Encounter Time: 18:52 Subjective: The patient is postop from drainage of abscess. She has no abdominal pain. She is having loose stools since last Sunday . Denies eating outside at a restaurant recently . She was taking cipro and flagyl prior to admission She denies nausea or vomiting. - Objective Vital Signs & Weight: Vital Signs (12 hours) Temp Pulse Resp BP Pulse Ox 07/24/20 11:48 98.9 F 69 16 109/73 95 07/24/20 08:24 98.3 F 69 18 122/76 95 Weight Weight 260 lb I&O: 07/23/20 07/24/20 07/25/20 06:59 06:59 06:59 Intake Total 2390 Balance 2390 Result Diagrams: 07/24/20 05:24 07/24/20 05:24 Hospitalist ROS - Review of Systems Constitutional: denies: fever, chills - Medication Medications: Active Medications Generic Name Dose Route Start Last Admin Trade Name Freq PRN Reason Stop Dose Admin Sodium Chloride 1,000 mls @ 75 mls/hr 07/23/20 20:00 07/24/20 10:27 Normal Saline 0.9% IV Not Given .[id number] YUE Cefepime HCl 2 gm/ Sodium 100 mls @ 200 mls/hr 07/23/20 21:00 07/24/20 10:05 Chloride IVPB 100 mls Q12HR YUE Administration Metronidazole 500 mg/ Device 100 mls @ 100 mls/hr 07/23/20 22:00 07/24/20 18:26 IVPB Not Given Q8HR YUE Vancomycin HCl 1.75 gm/ Sodium 500 mls @ 250 mls/hr 07/24/20 06:00 07/24/20 18:36 Chloride IVPB 500 mls 0600,1800 YUE Administration - Exam General Appearance: NAD, awake alert Eye: PERRL, anicteric sclera ENT: normocephalic atraumatic, no oropharyngeal lesions Neck: no JVD Heart: RRR, no murmur, no gallops, no rubs Respiratory: CTAB, no wheezes, no rales, no ronchi Gastrointestinal: soft Gastrointestinal - other findings: surgical gauze in midline. No significant tenderness Extremities: no cyanosis, no clubbing, no edema Skin: normal turgor, no lesions, no rashes Neurological: cranial nerve grossly intact, normal sensation to touch, no focal deficits, no new deficit Hosp A/P - Plan CT abdomen: new collection posterior to region of mesh with inflammatory changes and phlegmon. Subcutaneous edema. Diverticulosis This is a 50 year old female who presented to the ER with abdominal pain, found to have an abscess Abdominal abscess - s/p drainage today - continue IV vancomycin, cefepime and flagyl - pain meds prn - will resume diet Diarrhea - check stool cultures, C diff Anxiety - continue buspirone Depression - continue cymbalta
[2020-07-24] MEDS ORDERED: HYDROcodone/Acetaminophen 5/325 mg Tablet PO PRN ×2 (19:22)
[2020-07-25 05:45] LABS: Vancomycin, Trough 8.8 ug/mL
[2020-07-25] MEDS ORDERED: Vancomycin 1.5 GRAM/300 ML BAG 1.5 GM in Premix Bag 1 BAG IVPB SCH (06:00)
[2020-07-25] MEDS: Vancomycin HCl 1.75 GM in Sodium Chloride 0.9% 500 ML IVPB SCH (08:44)
[2020-07-25 11:35] VITALS: BP 123/77; TEMP 97.5
--- NOTE | 2020-07-25 15:56 | DIS ---
DATE OF ADMISSION: 07/23/2020 DATE OF DISCHARGE: 07/25/2020 DISCHARGE DIAGNOSIS: 1. Intraabdominal abscess with cellulitis, status post drainage with excision of mesh. 2. Diarrhea 3. Dysuria CONSULTATIONS: Dr. Michael Pond with General Surgery. PROCEDURES: Drainage of intraabdominal abscess with excision of mesh. BRIEF HISTORY OF PRESENT ILLNESS: This is a 50-year-old female with a past medical history of rheumatoid arthritis, fibromyalgia, MRSA infection, presented to the emergency room with cellulitis in her abdominal wall over the past several days. She had a similar episode last spring and needed drainage. She reports history of MRSA. She reported having fevers at home, but was afebrile here. She underwent a CT scan of her abdomen and pelvis in the emergency room, which showed infection of the mesh material along the anterior abdominal wall with a new collection, posterior to the region of mesh, worrisome for a new abscess. There are inflammatory changes and phlegmon. There is subcutaneous edema. She was started on broad-spectrum antibiotics, admitted to the hospital. HOSPITAL COURSE: Abdominal wall cellulitis secondary to intraabdominal abscess: She was initially started on IV vancomycin, cefepime, and Flagyl. The patient underwent incision and drainage with excision of mesh on 07/23 with drain placement. Wound cultures are growing gram-positive cocci in clusters. The patient's previous culture grew MRSA so she will be discharged on bactrim for 7 days. She will follow up with Dr. Pond tomorrow at 10 o'clock in the morning for evaluation of removal of her drain. The patient is requiring [place] for pain and this was prescribed by Dr. Pond on discharge. She should follow up with her PCP in a week. Diarrhea: The patient reported diarrhea on and off since last week. She did have a rapid parasite screen, which was negative. Campylobacter, Shigella, E coli, and C difficile were normal. This might be secondary to her antibiotics. She did not want any antidiarrheals on discharge, instead to take fiber supplements p.r.n. Dysuria: The patient reported occasional dysuria. UA showed turbid urine, 10 ketones, negative nitrites, and 11 to 20 white blood cells. Urine culture was attempted to be obtained, but the patient was unable to urinate again. She will be discharged on Bactrim. Consider repeat UA and urine culture if her symptoms persist. DISCHARGE PHYSICAL EXAMINATION: VITAL SIGNS: Temperature 97.5, heart rate 60, respiratory rate 16, O2 saturation 97% on room air, blood pressure 123/77. GENERAL: The patient is alert, awake, and oriented x3. CVS: Regular rate and rhythm with no murmurs, rubs, or gallops. LUNGS: Clear to auscultation bilaterally. ABDOMEN: Positive bowel sounds. She does have an open wound discovered in gauze from her surgery. There is a drain in place. Abdomen is tender on the surgical site slightly. EXTREMITIES: No edema. LABORATORY DATA: CBC, 07/24: Normal. BMP, 07/24: Unremarkable except for chloride of 108. LFTs, 07/23: Normal. IMAGING: CT abdomen and pelvis, 07/23: Infection of the mesh which was along the anterior abdominal wall. Subcutaneous edema and stranding in the infraumbilical adipose layer. Colonic diverticulosis. New collection seen posterior to the region of the mesh material, worrisome for a new abscess. There are inflammatory changes and phlegmon seen adjacent to the mesh material. DISCHARGE CONDITION: Stable. ACTIVITY: As tolerated. DIET: Regular diet. DISCHARGE MEDICATIONS: 1. Bactrim Double Strength 1 tablet p.o. b.i.d. 2. [place] 5 mg/325 mg one tablet q.4 hours p.r.n., prescribed by Dr. Pond. 3. Pramipexole 1.5 mg one tablet p.o. daily. 4. Lexapro 10 mg tablet p.o. daily. 5. Duloxetine 60 mg capsule p.o. daily. 6. Buspirone 10 mg tablet p.o. b.i.d. DISCHARGE INSTRUCTIONS: The patient needs to follow up with Dr. Pond on Sunday. Keep the drain in until then. Return to the hospital if any fever, purulent discharge, severe abdominal pain. Job ID: [id number] [facility]
--- NOTE | 2020-07-28 05:12 | PQF ---
Dear : Karrie Ball Date 07/28 Please exercise your independent, professional judgment in responding to the clarification form. Clinical indicators are provided on the bottom of this form for your review Can you please further clarify if Abdominal wall abscess is a complication of recent surgery or not? Please check appropriate box(es): [ X ] Abdominal wall abscess due to Infected mesh from recent surgery [ ] Abdominal wall abscess is not Infected mesh from recent surgery [ ] Other diagnosis please specify [ ] Unable to determine Physician Signature: Date/Time: For continuity of documentation, please document condition throughout progress notes and discharge summary. Thank You. To be completed by CDI/Coding staff for physician review: Present Clinical Indicators - Signs / Symptoms / Labs Results and Location in Medical Record [ x ] Abdominal wall abscess Consult Dr. Pond 07/23 pg.1 [ x ] 1 week hx of increasing swelling and pain within lower central abdomen Consult Dr. Pond 07/23 pg.1 [ x ] She has hx of numerous MRSA in the past Consult Dr. Pond 07/23 pg.1 [ x ] CT showed abscess on the anterior side of the mesh H ad P pg.2 [ x ] Infection of the mesh material along the anterior abdominal wall with a new collection DS pg.1 [ x ] Bacterial culture- Final: MRSA Microgiology [ x ] WBC: 07/23=7.0 07/24=6.3 Laboratory 07/23 Present Risk Factors Results and Location in Medical Record [ x ] Surgical hx of gastric sleeve Consult Dr. Pond 07/23 pg.1 [ x ] Surgical hx of ventral hernia repair Consult Dr. Pond 07/23 pg.1 [ x ] Surgical hx of removal of infected mesh Consult Dr. Pond 07/23 pg.1 [ x ] Abdominal wall Cellulitis H and P pg.1 [ x ] Obesity Anesthesia 07/24 Present Treatments Results and Location in Medical Record [ x ] IV fluids MAR [ x ] Drainage of intraabdominal abscess OP report pg.1 [ x ] Excision of mesh OP report pg.1 [ x ] Abdomen/Pelvis CT 07/23 [ x ] Vancomycin 1.75gm IV MAR [ x ] Zosyn 4.5gm IV MAR [ x ] Cefepime 2gm IV MAR [ x ] Bacterial culture Microbiology 07/24 [facility] Signature: Yash Chakraborty Phone #: [phone] Date: 07/28/20 This is a permanent part of the Medical Record [facility]
== END 2020-07-25 15:05 | disposition home or self-care (01) | DRG 908 ==
LOC: ERS 15:13 → SURG B 18:49
PROVIDERS: ADMIT Internal Medicine; ATTEND Internal Medicine
PROC: 0W9F00Z Drainage of Abdominal Wall with Drainage Device, Open Approach (ICD-10-PCS; principal; 2020-07-24)
PROC: 0WPF0JZ Removal of Synthetic Substitute from Abdominal Wall, Open Approach (ICD-10-PCS; 2020-07-24)
PROC: 3E02340 Introduction of Influenza Vaccine into Muscle, Percutaneous Approach (ICD-10-PCS; 2020-07-25)
DX: T85.79XA Infection and inflammatory reaction due to other internal prosthetic devices, implants and grafts, initial encounter (principal); L03.311 Cellulitis of abdominal wall; Z68.41 Body mass index [BMI] 40.0-44.9, adult; L02.211 Cutaneous abscess of abdominal wall; Z20.828 Contact with and (suspected) exposure to other viral communicable diseases; M79.7 Fibromyalgia; E66.01 Morbid (severe) obesity due to excess calories; F41.9 Anxiety disorder, unspecified; F32.9 Major depressive disorder, single episode, unspecified; M19.90 Unspecified osteoarthritis, unspecified site; Y83.8 Other surgical procedures as the cause of abnormal reaction of the patient, or of later complication, without mention of misadventure at the time of the procedure; R19.7 Diarrhea, unspecified; Z93.1 Gastrostomy status; Z90.49 Acquired absence of other specified parts of digestive tract; Z23 Encounter for immunization; Z98.51 Tubal ligation status; Z90.710 Acquired absence of both cervix and uterus; Z79.899 Other long term (current) drug therapy
CPT/HCPCS: 36415; 74177; 80048; 80053; 80202; 81003; 81015; 83605; 83630; 83690; 85025; 87040; 87045; 87046; 87070; 87077; 87081; 87186; 87205; 87324; 87328; 87329; 87427; 87449; 87635; 90471; 90662; 96365; 96367; G0008; J0692; J1100; J2250; J2405; J2543; J2704; J3010; J3370; J3490; J7030; Q9967; U0003

== ENCOUNTER 2020-08-20 16:56 | Observation (INO) | payer SELFPAY ==
[2020-08-20 17:56] LABS: #Basophils 0.1 thou/uL (0.0-0.2); #Eosinphils 0.2 thou/uL (0.0-0.7); #Lymphocytes 2.3 thou/uL (1.20-3.40); #Monocytes 0.4 thou/uL (0.11-0.59); #Neutrophils 3.5 thou/uL (1.40-6.50); %Basophils 1.1 % (0.0-1.0); %Eosinophils 3.7 % (0.0-10.0); %Lymphocytes 35.9 % (21.0-51.0); %Monocytes 6.1 % (0.0-10.0); %Neutrophils 53.2 % (42.0-75.0); Hemoglobin 14.4 g/dL (12.0-16.0); Mean Corpuscular HGB CONC 32.9 g/dL (32.0-36.0); Mean Corpuscular Hemoglobin 30.2 pg (27.0-31.0); Mean Corpuscular Volume 91.8 fL (78.0-98.0); Mean Platelet Volume 8.2 fL (7.4-10.4); Platelet Count 204 thou/uL (130-400); RBC Distribution Width 12.9 % (11.5-14.5); Red Blood Cell (RBC) Count 4.76 mill/uL (4.20-5.40); White Blood Cell (WBC) Count 6.5 thou/uL (4.8-10.8)
[2020-08-20 17:57] LABS: Bacteria/HPF None Seen HPF (None Seen); Bilirubin Negative (Negative); Blood, Urine Negative (Negative); Clarity Clear (Clear); Glucose, Urine (Dipstick) Normal (Negative); Ketone, Urine Negative (Negative); Leukocyte 25 Leu/uL (Negative); Nitrite Negative (Negative); Protein, Urine (Dipstick) Negative (Neg-Trace); RBC/HPF 0-3 HPF (0-3); Specific Gravity, Urine 1.006 (1.002-1.036); Squamous Epithelial 0-3 HPF (0-3); Urobilinogen Normal mg/dL (Less than 2); WBC/HPF 0-3 HPF (0-3); pH, Urine 5.5 (5.0-9.0)
[2020-08-20 18:15] LABS: ALT (SGPT) 16 U/L (8-55); AST (SGOT) 16 U/L (5-34); Albumin 4.1 g/dL (3.5-5.0); Alkaline Phosphatase 97 U/L (40-110); Anion Gap 13 mmol/L (10-20); BUN (Urea Nitrogen) 20 mg/dL (9.8-20.1); Bilirubin, Total 0.5 mg/dL (0.2-1.2); Calc. Creatinine Clearance 0 mL/min (70-130); Calcium 9.5 mg/dL (7.8-10.44); Carbon Dioxide 28 mmol/L (22-29); Chloride 104 mmol/L (98-107); Estimated GFR-MDRD 47; Globulin 3.6 g/dL (2.4-3.5); Glucose 96 mg/dL (70-105); Protein, Total 7.7 g/dL (6.0-8.3); Sodium 141 mmol/L (136-145)
[2020-08-20] MEDS ORDERED: Ondansetron PF 4 MG/2 ML Vial ONE (19:46)
[2020-08-20] MEDS ORDERED: Morphine 4 MG/ML VIAL ONE (19:46)
[2020-08-20] MEDS ORDERED: HYDROmorphone 0.5 MG/0.5 ML SYRINGE ONE ×2 (21:11→22:34)
--- NOTE | 2020-08-20 21:18 | CT ---
CT ABDOMEN AND PELVIS WITH IV CONTRAST: 08/20/20 HISTORY: Abdominal pain and distention. Nausea. COMPARISON: 07/23/20. FINDINGS: The lung bases are clear. Postoperative changes of the upper stomach and the colon are again demonstr ated. Incidental note of a circumaortic left renal vein. Solid organs have a normal appearance. No evidence of bowel obstruction. Postoperative changes of the anterior abdominal wall and extensive scarring and stranding are again demonstrated. The focal fluid collection along the deep margin of th e anterior midline lower abdominal wall is again demonstrated. It is now 3.6 cm x 2.2 cm x 1.8 cm gre atest diameters (previously 5.8 cm x 4.8 cm x 3.8 cm.) No internal gas. No new areas of fluid collect ions. IMPRESSION: Interval decrease in size of abscess pocket at the anterior abdominal wall. Surrounding scarring and stranding has improved slightly. No new abnormalities are evident. Extensive postoperative changes of the abdomen are stable. POS: BST
[2020-08-21] MEDS ORDERED: Piperacillin/Tazobactam 4.5 GM VIAL ONE (01:00)
[2020-08-21] MEDS ORDERED: Vancomycin 1 GM/200 ML BAG ONE (01:04)
[2020-08-21] MEDS ORDERED: Acetaminophen 650 MG Suppository PR PRN (01:11)
[2020-08-21 01:21] VITALS: BMI 45.1
[2020-08-21] MEDS ORDERED: HYDROmorphone 0.5 MG/0.5 ML SYRINGE ONE (01:39)
[2020-08-21 01:53] LABS: Vancomycin, Trough Less than 1.1 ug/mL
[2020-08-21] MEDS ORDERED: Cefepime 2 GM in Sodium Chloride 0.9% 100 ML IVPB SCH (02:00)
[2020-08-21] MEDS ORDERED: metroNIDAZOLE 500 MG in Premix Bag 1 BAG IVPB SCH (02:00)
--- NOTE | 2020-08-21 02:23 | PDOC.BPN ---
- Brief Progress Note [id number] HP dictated
[2020-08-21] MEDS: Sodium Chloride 0.9% 1,000 ML IV SCH ×2 (02:56→21:20)
[2020-08-21] MEDS ORDERED: Vancomycin 1 GM in Premix Bag 1 BAG IVPB SCH (03:00)
[2020-08-21] MEDS: Cefepime 2 GM in Sodium Chloride 0.9% 100 ML IVPB SCH ×2 (04:23→16:46)
--- NOTE | 2020-08-21 04:58 | HP ---
CHIEF COMPLAINT: Abdominal pain. HISTORY OF PRESENT ILLNESS: Ms. Hamilton is a 50-year-old female with past medical history of rheumatoid arthritis, osteoarthritis, recurrent abscesses, MRSA infection, gastric sleeve, hernia repair, hysterectomy, abdominal surgeries in the past, presented to the emergency room with abdominal pain, lower abdomen. Denies fever or chills. Workup in the emergency room including imaging studies, the patient was found to have intraabdominal abscess, which is decreasing in size from prior imaging. The ED physician discussed the case with surgeon who advised to admit the patient under hospitalist service and surgeon will consult and see the patient in the morning. Septic workup was done in the ED. Started IV antibiotics. The patient denies nausea, vomiting. PAST MEDICAL HISTORY: As mentioned above in the history of present illness. PAST SURGICAL HISTORY: 1. Gastric sleeve. 2. Colon resection. 3. Hernia repair. 4. Knee surgery. 5. section. 6. Tubal ligation. 7. Hysterectomy. 8. Laparotomy. 9. abdomen for MRSA. 10. Anxiety and depression. PAST PSYCHIATRIC HISTORY: Anxiety and depression. SOCIAL HISTORY: Drinks socially. Denies drug use. Denies smoking. FAMILY HISTORY: Reviewed and noncontributory. HOME MEDICATIONS: See home medication reconciliation form for updated medications. ALLERGIES: NO KNOWN ALLERGIES. REVIEW OF SYSTEMS: Review of 14 systems negative except what is mentioned in history of present illness. PHYSICAL EXAMINATION: GENERAL: The patient is awake, alert, in moderate distress. VITAL SIGNS: Blood pressure is 134/64, pulse is 67, respiratory rate is 18, temperature 98.3, oxygen saturations 98% on room air. HEAD AND NECK: Normocephalic, atraumatic. NECK: Supple. No JVD. CHEST: Fair bilateral air entry. ABDOMEN: Soft. Lower abdominal tenderness. Bowel sounds present. NEUROLOGIC: Awake, alert, oriented x3. PSYCHIATRIC: Normal mood. EXTREMITIES: No clubbing or cyanosis. LABORATORY DATA: WBC 6.5, hemoglobin 14.5, platelets 204. Sodium 141, potassium 4.0, BUN 20, creatinine 1.2. ASSESSMENT: 1. Intraabdominal abscess. 2. History of methicillin-resistant Staphylococcus aureus infection. 3. Anxiety/depression. 4. Rheumatoid arthritis. 5. Osteoarthritis. PLAN: 1. Admit. 2. Septic workup done in the ED. 3. IV antibiotics. 4. Surgeon consulted for evaluation of further management, ED physician discussed case with surgeon. 5. Pain management. 6. Reconcile home medications. 7. DVT prophylaxis as appropriate. 8. Expected length of stay, 2 midnights or more. Job ID: [id number]
[2020-08-21] MEDS: metroNIDAZOLE 500 MG in Premix Bag 1 BAG IVPB SCH ×3 (05:16→19:48)
[2020-08-21] MEDS ORDERED: Sodium Chloride 0.9% 10 ML ONE ×3 (06:24→23:26)
[2020-08-21] MEDS: Morphine 2 MG/ML VIAL SLOW IVP PRN ×4 (06:25→23:32)
[2020-08-21 08:39] LABS: SARS-CoV-2 MS2 Positive; SARS-CoV-2 N Gene Negative; SARS-CoV-2 S Gene Negative; SARS-CoV-2 by NAA Not Detected (NotDetected); SARS-CoV-2 orf1ab Negative
[2020-08-21] MEDS: Famotidine/PF 20 mg/2ml Vial SLOW IVP SCH ×2 (08:56→21:21)
--- NOTE | 2020-08-21 11:39 | PDOC.BPN ---
- Brief Progress Note Encounter Date: 08/21/20 Encounter Time: 08:55 Patient was admitted this morning for an intra-abdominal abscess with a history of MRSA infections. Assessed and visited with patient this morning. Cardiovascular still regular rate and rhythm, respiratory clear to auscultation bilaterally, abdomen is soft with lower abdominal tenderness. Bowel sounds still present. Awaiting surgical consultation at this time. Continue the IV antibiotics and pain management. Patient expresses no needs or concerns, understands plan of care.
[2020-08-21 13:13] LABS: #Eosinphils 0.3 thou/uL (0.0-0.7); #Lymphocytes 1.5 thou/uL (1.20-3.40); #Monocytes 0.3 thou/uL (0.11-0.59); #Neutrophils 2.6 thou/uL (1.40-6.50); %Basophils 0.3 % (0.0-1.0); %Eosinophils 6.6 % (0.0-10.0); %Lymphocytes 31.9 % (21.0-51.0); %Monocytes 6.3 % (0.0-10.0); %Neutrophils 54.9 % (42.0-75.0); Hemoglobin 15.6 g/dL (12.0-16.0); Mean Corpuscular HGB CONC 33.8 g/dL (32.0-36.0); Mean Corpuscular Hemoglobin 31.6 pg (27.0-31.0); Mean Corpuscular Volume 93.4 fL (78.0-98.0); Mean Platelet Volume 8.6 fL (7.4-10.4); Platelet Count 133 thou/uL (130-400); RBC Distribution Width 13.1 % (11.5-14.5); Red Blood Cell (RBC) Count 4.92 mill/uL (4.20-5.40); White Blood Cell (WBC) Count 4.7 thou/uL (4.8-10.8)
[2020-08-21 13:23] LABS: Anion Gap 17 mmol/L (10-20); BUN (Urea Nitrogen) 15 mg/dL (9.8-20.1); Calc. Creatinine Clearance 159 mL/min (70-130); Calcium 8.7 mg/dL (7.8-10.44); Carbon Dioxide 16 mmol/L (22-29); Chloride 110 mmol/L (98-107); Estimated GFR-MDRD 78; Glucose 105 mg/dL (70-105); Potassium 4.1 mmol/L (3.5-5.1); Sodium 139 mmol/L (136-145)
--- NOTE | 2020-08-21 21:20 | CON ---
DATE OF CONSULTATION: This is Janett Power NP dictating a report for Dr. Fraga. REQUESTING PHYSICIAN: Hospitalist. CHIEF COMPLAINT: Abdominal abscess. SUBJECTIVE: This is a 50-year-old female with recurrent abdominal abscesses with MRSA. The patient also has a history of rheumatoid arthritis, osteoarthritis, gastric sleeve, and hernia repair. The patient recently had an incision and drainage of the same area on July [address] Pond. The patient did see Dr. Pond in his clinic approximately one and a half weeks ago and had her justin removed. The patient reports that at that time, she started to get an area of redness and was informed by Dr. Pond that she will likely need further surgery and remove the internal mesh which is likely causing her to have recurrent infections. The patient also had an incision and drainage of the same area back in January of this year. The patient is afebrile and her white count is normal. The patient is currently receiving IV antibiotics per hospital team. Abdominal and pelvis CT impression shows a decrease in size of abscess pocket at the anterior abdominal wall. Surrounding scarring and stranding have improved slightly. No new abnormalities are evident. ASSESSMENT: 1. Recurrent intraabdominal abscess. 2. History of methicillin-resistant Staphylococcus aureus infection. RECOMMENDATIONS: No acute surgical indication at this time. The patient may follow up with surgeon, Dr. Pond for continued care and for other surgical indication. The patient may be discharged on oral antibiotics. The plan was made by Dr. Fraga. Please reach out if you have any questions. Job ID: [id number]
[2020-08-22] MEDS ORDERED: Vancomycin HCl 1.75 GM in Sodium Chloride 0.9% 500 ML IVPB SCH (03:00)
[2020-08-22] MEDS ORDERED: Cefepime 2 GM in Sodium Chloride 0.9% 100 ML IVPB SCH (05:00)
[2020-08-22] MEDS: metroNIDAZOLE 500 MG in Premix Bag 1 BAG IVPB SCH ×3 (06:00→12:40)
[2020-08-22] MEDS: Sodium Chloride 0.9% 1,000 ML IV SCH (06:52)
[2020-08-22] MEDS: Cefepime 2 GM in Sodium Chloride 0.9% 100 ML IVPB SCH (06:53)
[2020-08-22] MEDS ORDERED: traMADol HCl 50 MG TAB PO PRN ×2 (09:24)
[2020-08-22 10:03] VITALS: BP 119/76; TEMP 98.3
[2020-08-22] MEDS: Famotidine/PF 20 mg/2ml Vial SLOW IVP SCH (10:03)
[2020-08-22] MEDS ORDERED: Acetaminophen 650 MG Suppository PR SCH (11:00)
--- NOTE | 2020-08-22 11:02 | PRG ---
DATE OF SERVICE: 08/22/2020 SUBJECTIVE: I am seeing Ms. Hamilton in followup. I was asked to see her in consultation. Please see the consultation dictation by my APC, Ms. Rowland Tono. I agree with assessment and plan. The patient has a history of recurrent MRSA anterior abdominal wall abscess. 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 She recently underwent a repeat incision and drainage of abdominal wall abscess by Dr. Pond. Sutures were removed approximately 2 weeks ago. The patient is here now with recurrent abscess from the last infection. I visited this patient this morning in the presence of her nurse. She is tolerating general diet, having normal bowel and urinary function. She has remained afebrile through this hospitalization. She is currently on IV antibiotics by her primary service. Her pain is adequately controlled, on intravenous analgesics. OBJECTIVE: VITAL SIGNS: This morning includes blood pressure 119/76, pulse is 76, respiratory rate is 18, temperature is 98.3 degrees Fahrenheit, oxygen saturation is 97% on room air. ABDOMEN: Soft, nontender, and nondistended. LABORATORY FINDINGS: As I reviewed is pertinent for CBC of 4700 white blood cells, hemoglobin and hematocrit 15.6 and 46.0 respectively, this was from yesterday. In fact, she has not had any leukocytosis in this admission. I recommend that the patient to follow up with Dr. Pond. Ultimately, this patient is going to require eventual excision of the abdominal wall mesh and this would certainly leave her with much larger defect, which would require total abdominal wall reconstruction in the future. I did inform the patient that it is advisable that she loses weight prior to anybody embarking on total abdominal wall reconstruction. Failure to lose weight will definitely resolve in the patient having a failed abdominal wall reconstruction should the mesh be excised in the future. This is the information I gave to the patient today in the presence of her nurse. She indicated understanding of information provided. General Surgery has not been followed through this case. This patient may be discharged at the discretion of the primary service to follow up with Dr. Pond within 1 week of discharge. Job ID: [id number]
--- NOTE | 2020-08-22 12:14 | PDOC.DS.DS ---
Provider - Provider Date of Admission: 08/21/20 00:36 Date of Discharge: 08/22/20 Admitting Provider: Nanette Osorio MD Consultations: General Surgery Primary Care Physician: Glendy Gr Course - Hospital Course Hospital Course: Patient is a 50-year-old female past medical history of rheumatoid arthritis, osteoarthritis, recurrent abdominal abscesses, MRSA infection, gastric sleeve, hernia repair, multiple abdominal surgeries who presented to the ER for lower abdominal pain. Imaging discovered intra-abdominal abscesses which had decreased in size from prior imaging. General surgery was consulted and patient was placed on IV antibiotics. Surgical team stated that surgery needed was not indicated at that time and she would be able to follow-up with her primary surgeon, Dr. Pond, for continued care. Patient was able to tolerate regular texture diet and was then transitioned to oral antibiotics in preparation for di scharge. - Labs Lab Results: 08/21/20 13:00 08/21/20 13:00 Abnormal Lab Results - Last 48 hrs 08/20/20 17:40: Ur Leukocyte Esterase 25 A 08/20/20 17:45: Creatinine 1.20 H, Globulin 3.6 H, Albumin/Globulin Ratio 1.1 L 08/20/20 17:45: Basophils % 1.1 H 08/21/20 13:00: Chloride 110 H, Carbon Dioxide 16 L 08/21/20 13:00: WBC 4.7 L, MCH 31.6 H - Physical Exam Vitals: Vital Signs (12 hours) Temp Pulse Resp BP BP Pulse Ox 08/22/20 10:02 98.3 F 76 18 119/76 97 08/22/20 05:15 97.9 F 62 16 116/61 97 Weight Admit Weight 255 lb Weight 263 lb 0.183 oz Physical Exam: The patient was seen and examined on the day of discharge. Problem - Problem (1) Abdominal wall abscess at site of surgical wound Code(s): T81.49XA - INFECTION FOLLOWING A PROCEDURE, OTHER SURGICAL SITE, INIT Status: Acute (2) Rheumatoid arthritis Code(s): M06.9 - RHEUMATOID ARTHRITIS, UNSPECIFIED Status: Chronic - Time spent with Patient (mins): 30 Plan - Discharge Medications Prescriptions: Sulfamethoxazole/Trimethoprim [Bactrim DS] 1 tab PO BID 7 Days #14 tab Saccharomyces boulardii [Florastor] 250 mg PO DAILY #30 cap Home Medications: Medication Instructions Recorded Confirmed Type DULoxetine [Cymbalta] 1 cap PO DAILY 02/21/20 08/21/20 History Pramipexole Di-HCl [Pramipexole 1 tab PO DAILY 02/21/20 08/21/20 History Dihydrochloride] Escitalopram Oxalate [Lexapro] 1 tab PO DAILY 07/24/20 08/21/20 History busPIRone HCl [Buspirone HCl] 1 tab PO BID 07/24/20 08/21/20 History Saccharomyces boulardii [Florastor] 250 mg PO DAILY #30 cap 08/22/20 Rx Sulfamethoxazole/Trimethoprim 1 tab PO BID 7 Days #14 tab 08/22/20 Rx [Bactrim DS] Allergies: No Known Allergies Allergy (Verified 07/23/20 20:57) - Discharge Instructions Discharge Instructions:: Please take an over the counter probiotic with your antibiotics - Follow up Plan Referrals: Nila Markham MD [Primary Care Provider] - Michael Pond MD [Active] - 3 Days (Call tomorrow morning for appointment) Disposition: HOME Quality - Care Measures CORE MEASURES:: N/A
== END 2020-08-22 14:35 | disposition home or self-care (01) ==
LOC: ERS 16:56 → ERHOLD 08-21 00:36 → 3SE 08-21 02:13
PROVIDERS: ADMIT Internal Medicine; ATTEND Hospitalist
DX: T81.43XA Infection following a procedure, organ and space surgical site, initial encounter (principal); K65.1 Peritoneal abscess; B95.62 Methicillin resistant Staphylococcus aureus infection as the cause of diseases classified elsewhere; M06.9 Rheumatoid arthritis, unspecified; M19.90 Unspecified osteoarthritis, unspecified site; F41.9 Anxiety disorder, unspecified; F32.9 Major depressive disorder, single episode, unspecified; Z79.899 Other long term (current) drug therapy; Z20.828 Contact with and (suspected) exposure to other viral communicable diseases
CPT/HCPCS: 36415; 74177; 80048; 80053; 80202; 81003; 81015; 85025; 87635; 96366; 96367; 96375; 96376; G0378; J0692; J1170; J2270; J2405; J2543; J3370; J3490; J7030; S0028; U0003